=== PATIENT | female | born 1935 | race Caucasian/White ===

== ENCOUNTER 2020-10-01 12:09 | Emergency (ER) | payer MEDICARE ==
[2020-10-01] MEDS ORDERED: Sodium Chloride 0.9% 10 ML Syringe FLUSH PRN (12:28)
--- NOTE | 2020-10-01 13:14 | CR ---
Chest: Portable view of the chest was obtained. Comparison: No prior chest imaging is available. Heart is enlarged. Tortuous thoracic aorta is seen. Lungs are clear with no acute parenchymal change. Slight scoliosis is noted within the spine. Bony structures are osteopenic. Impression: 1. Cardiomegaly and other findings as noted above. 2. Nothing acute is appreciated. Diagnostic code #2
--- NOTE | 2020-10-01 14:27 | EDM.PDOC ---
ED HPI GENERAL MEDICAL PROBLEM - General Chief Complaint: Chest Pain Stated Complaint: [facility] Time Seen by Provider: 10/01/20 12:11 Source of Information: Reports: Patient History Limitations: Reports: No Limitations - History of Present Illness INITIAL COMMENTS - FREE TEXT/NARRATIVE: The patient presents by [facility] for chest pain. This started this morning at 7am. She went to the clinic in [place] and she was given aspirin and nitro and the pain went away. She has a history of atrial fibrillation. She is not on any blood thinners. She has no fever, chills, cough, shortness of breath, abdominal pain, nausea or vomiting. She has no history of heart attacks according to her. Onset: Gradual Duration: Hour(s): Location: Reports: Chest Quality: Reports: Sharp Severity: Moderate Improves with: Reports: None Worsens with: Reports: None Associated Symptoms: Reports: Chest Pain. Denies: Cough, Fever/Chills, Headaches, Nausea/Vomiting, Shortness of Breath - Related Data Allergies Allergy/AdvReac Type Severity Reaction Status Date / Time No Known Allergies Allergy Verified 10/01/20 12:18 Home Meds: Home Meds . [No Known Home Meds] 10/01/20 [History] Past Medical History [employer] History: Reports: - Past Surgical History Female Surgical History: Reports: Hysterectomy Musculoskeletal Surgical History: Reports: Other (See Below) Other Musculoskeletal Surgeries/Procedures:: left left femur fx with surgery Social & Family History - Tobacco Use Tobacco Use Status *Q: Never Tobacco User - Caffeine Use Caffeine Use: Reports: Coffee - Recreational Drug Use Recreational Drug Use: No ED ROS GENERAL - Review of Systems Review Of Systems: See Below Constitutional: Reports: No Symptoms HEENT: Reports: No Symptoms Respiratory: Reports: No Symptoms Cardiovascular: Reports: Chest Pain Endocrine: Reports: No Symptoms GI/Abdominal: Reports: No Symptoms : Reports: No Symptoms Musculoskeletal: Reports: No Symptoms ED EXAM, GENERAL - Physical Exam Exam: See Below Exam Limited By: No Limitations General Appearance: Alert, No Apparent Distress Ears: Normal External Exam Nose: Normal Inspection Head: Atraumatic, Normocephalic Neck: Normal Inspection Respiratory/Chest: No Respiratory Distress, Lungs Clear, Normal Breath Sounds Cardiovascular: Regular Rate, Rhythm, No Edema, No Murmur GI/Abdominal: Soft, Non-Tender, No Organomegaly, No Mass Extremities: Normal Inspection #1 Interpretation EKG Date: 10/01/20 Time: 12:12 Rhythm: A-Fib Rate (Beats/Min): 81 [place]: LAD-Left [place] Deviation P-Wave: Absent QRS: Normal ST-T: Normal QT: Prolonged Course - Vital Signs Last Recorded V/S: Last Vital Signs Temp 99.3 F 10/01/20 12:13 Pulse 82 10/01/20 12:13 Resp 18 10/01/20 12:13 BP 174/103 H 10/01/20 12:13 Pulse Ox 96 10/01/20 12:13 - Orders/Labs/Meds Orders: Active Orders 24 hr Category Date Time Status Cardiac Monitoring [RC] . DIRECTED Care 10/01/20 12:28 Active EKG Documentation Completion [RC] ASDIRECTED Care 10/01/20 12:17 Active Peripheral IV Care [RC] . DIRECTED Care 10/01/20 12:29 Active Sodium Chloride 0.9% [Saline Flush] Med 10/01/20 12:28 Active 10 ml FLUSH ASDIRECTED PRN Peripheral IV Insertion Adult [OM.PC] Stat Oth 10/01/20 12:28 Ordered EKG 12 Lead [EK] Stat Ther 10/01/20 12:17 Ordered Medication Orders Sodium Chloride (Sodium Chloride 0.9% 10 Ml Syringe) 10 ml FLUSH ASDIRECTED PRN PRN Reason: Keep Vein Open Last Admin: 10/01/20 12:39 Dose: 10 ml Documented by: ANDRES Labs: Laboratory Tests 10/01/20 10/01/20 Range/Units 12:56 12:56 WBC 10.35 H (3.98-10.04) K/mm3 RBC 4.16 (3.98-5.22) M/mm3 Hgb 12.9 (11.2-15.7) gm/dl Hct 40.5 (34.1-44.9) % MCV 97.4 H (79.4-94.8) fl MCH 31.0 (25.6-32.2) pg MCHC 31.9 L (32.2-35.5) g/dl RDW Std Deviation 43.9 (36.4-46.3) fL Plt Count 154 L (182-369) K/mm3 MPV 10.0 (9.4-12.3) fl Neut % (Auto) 84.3 H (34.0-71.1) % Lymph % (Auto) 5.2 L (19.3-51.7) % [place] % (Auto) 10.0 (4.7-12.5) % Eos % (Auto) 0.3 L (0.7-5.8) Baso % (Auto) 0.1 (0.1-1.2) % Neut # (Auto) 8.72 H (1.56-6.13) K/mm3 Lymph # (Auto) 0.54 L (1.18-3.74) K/mm3 [place] # (Auto) 1.04 H (0.24-0.36) K/mm3 Eos # (Auto) 0.03 L (0.04-0.36) K/mm3 Baso # (Auto) 0.01 (0.01-0.08) K/mm3 Sodium 138 (136-145) mEq/L Potassium 4.1 (3.5-5.1) mEq/L Chloride 99 (98-107) mEq/L Carbon Dioxide 30 (21-32) mEq/L Anion Gap 13.1 (5-15) BUN 15 (7-18) mg/dL Creatinine 0.8 (0.55-1.02) mg/dL Est Cr Clr Drug Dosing 40.50 mL/min Estimated GFR (MDRD) > 60 (>60) mL/min BUN/Creatinine Ratio 18.8 H (14-18) Glucose 96 (83-115) mg/dL Calcium 8.6 (8.5-10.1) mg/dL Total Bilirubin 1.5 H (0.2-1.0) mg/dL AST 29 (15-37) U/L ALT 28 (14-59) U/L Alkaline Phosphatase 89 (46-116) U/L Troponin I < 0.017 (0.00-0.056) ng/mL Total Protein 7.7 (6.4-8.2) g/dl Albumin 4.4 (3.4-5.0) g/dl Globulin 3.3 gm/dL Albumin/Globulin Ratio 1.3 (1-2) Meds: Medications Generic Name Dose Route Start Last Admin Trade Name Freq PRN Reason Stop Dose Admin Sodium Chloride 10 ml 10/01/20 12:28 10/01/20 12:39 Sodium Chloride 0.9% 10 Ml Syringe FLUSH 10 ml ASDIRECTED PRN Administration Keep Vein Open - Re-Assessments/Exams Free Text/Narrative Re-Assessment/Exam: 10/01/20 14:27 I ordered an IV saline lock, EKG, CXR and labs. Her EKG shows atrial fibrillation without acute changes. Her CXR shows nothing acute. His WBC is elevated at 10.35. His troponin is negative. Her total bili is elevated at 1.5. She had no more chest pain. It does not appear she had an PA. I will discharge her home and follow up with her doctor within in a week. Departure - Departure Time of Disposition: 14:30 Disposition: Home, Self-Care 01 Condition: Good Clinical Impression: Atrial fibrillation Qualifiers: Atrial fibrillation type: permanent Qualified Code(s): I48.21 - Permanent atrial fibrillation Chest pain Qualifiers: Chest pain type: unspecified Qualified Code(s): R07.9 - Chest pain, unspecified Referrals: PCP,None [Primary Care Provider] - Forms: ED Department Discharge Additional Instructions: Take your medications as prescribed. Follow up with your doctor within a week. Please return if you are worse. Sepsis Event Note (ED) - Evaluation Sepsis Screening Result: No Definite Risk - Focused Exam Vital Signs: Vital Signs Temp Pulse Resp BP Pulse Ox 10/01/20 12:13 99.3 F 82 18 174/103 H 96 - My Orders Last 24 Hours: My Active Orders 10/01/20 12:17 EKG Documentation Completion [RC] ASDIRECTED EKG 12 Lead [EK] Stat 10/01/20 12:28 Cardiac Monitoring [RC] . DIRECTED Sodium Chloride 0.9% [Saline Flush] 10 ml FLUSH ASDIRECTED PRN Peripheral IV Insertion Adult [OM.PC] Stat 10/01/20 12:29 Peripheral IV Care [RC] . DIRECTED - Assessment/Plan Last 24 Hours: My Active Orders 10/01/20 12:17 EKG Documentation Completion [RC] ASDIRECTED EKG 12 Lead [EK] Stat 10/01/20 12:28 Cardiac Monitoring [RC] . DIRECTED Sodium Chloride 0.9% [Saline Flush] 10 ml FLUSH ASDIRECTED PRN Peripheral IV Insertion Adult [OM.PC] Stat 10/01/20 12:29 Peripheral IV Care [RC] . DIRECTED
== END 2020-10-01 14:39 | disposition home or self-care (01) ==
LOC: JD.ED 12:09
DX: I48.21 Permanent atrial fibrillation (principal); D72.829 Elevated white blood cell count, unspecified
CPT/HCPCS: 36415; 71045; 71045-26; 80053; 84484; 85025; 93005; 93010; 99284; 99285-25